=== PATIENT | male | born 1975 ===

== ENCOUNTER 2023-02-27 04:37 | Day surgery (SDC) | payer OTHER ==
[~2023-02-27] VITALS: Ht 172.7 cm; Wt 74.8 kg
[~2023-02-27 04:37] MED LIST: TAMS0.4C PO
== END 2023-02-27 11:20 | disposition home or self-care (01) ==
LOC: CIR.AMB 04:37
PROVIDERS: ATTEND Surgery Surgery of the Hand
DX: M67.844 Other specified disorders of tendon, left hand (principal); M65.842 Other synovitis and tenosynovitis, left hand; Z20.822 Contact with and (suspected) exposure to COVID-19